=== PATIENT | female | born 1995 | race Two or more races ===

== ENCOUNTER 2017-02-27 08:46 | Emergency (ER) | payer OTHER ==
[2017-02-27 09:01] VITALS: TEMP 98.7; BMI 27.3
--- NOTE | 2017-02-27 09:27 | PDOC ---
History of Present Illness - History of Present Illness Initial Comments: 02/27/17 09:42 The patient is a 21 year old female, A1, with no significant past medical history, who presents to the emergency department with intermittent abdominal pain, nausea, and feeling of urgency upon urination since yesterday with two episodes of vomiting this morning. She localizes her pain to her [id number] abdominal region which radiates to her back. She states she ate some soup around midnight last night and woke up vomiting this morning. She also states that when she has finished urinating, she feels the need to keep going, but there is nothing left. She described this feeling as pressure. She states she was recently diagnosed with gastritis and reports taking omeprazol yesterday with very little relief of her symptoms. LMP: 02/02/17 5 year IUD was taken out 2 months ago. She reports her MPs are irregular. She denies chest pain, shortness of breath, headache and dizziness. She denies fever, chills, diarrhea and constipation. She denies dysuria, frequency, and hematuria. Allergies: NKDA Family History: Kidney stones (mother) Social history: denies toxic habits <Kalli Gonzalez - Last Filed: 02/27/17 09:42> <Darcie Zepeda - Last Filed: 02/27/17 11:23> - General Chief Complaint: Pain Stated Complaint: VOMITING Time Seen by Provider: 02/27/17 09:23 Past History <Kalli Gonzalez - Last Filed: 02/27/17 09:42> - Past Medical History Asthma: No Cancer: No Cardiac Disorders: No Diabetes: No GI Disorders: Yes (GERD) HTN: No Seizures: No Thyroid Disease: No - Psycho/Social/Smoking Cessation Hx Anxiety: No Suicidal Ideation: No Smoking Status: No Smoking History: Never smoked Number of Cigarettes Smoked Daily: 0 Information on smoking cessation initiated: No Hx Alcohol Use: No Drug/Substance Use Hx: No Substance Use Type: None Hx Substance Use Treatment: No <Darcie Zepeda - Last Filed: 02/27/17 11:23> - Past Medical History Allergies/Adverse Reactions: Allergies Allergy/AdvReac Type Severity Reaction Status Date / Time No Known Allergies Allergy Verified 02/27/17 09:02 Home Medications: Ambulatory Orders Acetaminophen [Tylenol .Regular Strength -] 650 mg PO Q4H PRN #0 tablet Omeprazole [Prilosec (RX)] 20 mg PO DAILY 11/02/12 Cephalexin Monohydrate [Keflex -] 500 mg PO BID #14 capsule 02/27/17 Review of Systems - Review of Systems Able to Perform ROS?: Yes Comments:: 02/27/17 09:42 GENERAL/CONSTITUTIONAL: No fever or chills. No weakness. HEAD, EYES, EARS, NOSE AND THROAT: No change in vision. No ear pain or discharge. No sore throat. CARDIOVASCULAR: No chest pain or shortness of breath. RESPIRATORY: No cough, wheezing, or hemoptysis. GASTROINTESTINAL: (+)nausea, vomiting, No diarrhea or constipation. GENITOURINARY: (+) pressure and urgency after urination. No dysuria, frequency MUSCULOSKELETAL: No joint or muscle swelling or pain. No neck or back pain. SKIN: No rash NEUROLOGIC: No headache, vertigo, loss of consciousness, or change in strength/ sensation. ENDOCRINE: No increased thirst. No abnormal weight change. HEMATOLOGIC/LYMPHATIC: No anemia, easy bleeding, or history of blood clots. ALLERGIC/IMMUNOLOGIC: No hives or skin allergy. <Kalli Gonzalez - Last Filed: 02/27/17 09:42> *Physical Exam - Vital Signs Last Vital Signs Temp Pulse Resp BP Pulse Ox 98.7 F 96 H 18 120/69 98 02/27/17 08:59 02/27/17 08:59 02/27/17 08:59 02/27/17 08:59 02/27/17 08:59 - Physical Exam Comments: 02/27/17 09:43 GENERAL: Awake, alert, and fully oriented, in no acute distress HEAD: No signs of trauma EYES: PERRLA, EOMI, sclera anicteric, conjunctiva clear ENT: (+)Dry mucosa; Auricles normal inspection, hearing grossly normal, nares patent, oropharynx clear without exudates. NECK: Normal ROM, supple, no lymphadenopathy, JVD, or masses LUNGS: Breath sounds equal, clear to auscultation bilaterally. No wheezes, and no crackles HEART: Regular rate and rhythm, normal S1 and S2, no murmurs, rubs or gallops ABDOMEN: Soft, nontender, normoactive bowel sounds. No guarding, no rebound. No masses EXTREMITIES: Normal range of motion, no edema. No clubbing or cyanosis. No cords, erythema, or tenderness NEUROLOGICAL: Cranial nerves II through XII grossly intact. Normal speech, normal gait SKIN: Warm, Dry, normal turgor, no rashes or lesions noted. <Kalli Gonzalez - Last Filed: 02/27/17 09:42> - Vital Signs Last Vital Signs Temp Pulse Resp BP Pulse Ox 98.7 F 96 H 18 120/69 98 02/27/17 08:59 02/27/17 08:59 02/27/17 08:59 02/27/17 08:59 02/27/17 08:59 <Darcie Zepeda - Last Filed: 02/27/17 11:23> ED Treatment Course - Medications Given in the ED: ED Medications Discontinued Medications Generic Name Dose Route Start Last Admin Trade Name Freq PRN Reason Stop Dose Admin Ondansetron HCl 4 mg 02/27/17 09:32 02/27/17 09:40 Zofran Injection IVPUSH 02/27/17 09:33 4 mg ONCE ONE Administration <Kalli Gonzalez - Last Filed: 02/27/17 09:42> - LABORATORY CBC & Chemistry Diagram: 02/27/17 09:48 02/27/17 09:45 <Darcie Zepeda - Last Filed: 02/27/17 11:23> Medical Decision Making - Medical Decision Making 02/27/17 10:49 Pt reassessed. Feeling much better s/p IVF. UA positive, culture sent. Treated with rocephin. Will DC home on keflex. Stable for DC. <Darcie Zepeda - Last Filed: 02/27/17 11:23> *DC/Admit/Observation/Transfer - Attestations Scribe Attestion: 02/27/17 09:44 Documentation prepared by Kalli Gonzalez, acting as medical imaging specialist for Darcie Zepeda MD, MD <Kalli Gonzalez - Last Filed: 02/27/17 09:42> - Discharge Dispostion Admit: No <Darcie Zepeda - Last Filed: 02/27/17 11:23> Diagnosis at time of Disposition: UTI (urinary tract infection) Qualifiers: Urinary tract infection type: acute cystitis Hematuria presence: without hematuria Qualified Code(s): N30.00 - Acute cystitis without hematuria - Discharge Dispostion Disposition: HOME Condition at time of disposition: Stable - Prescriptions Prescriptions: Cephalexin Monohydrate [Keflex -] 500 mg PO BID #14 capsule - Referrals Referrals: Junaid Carias [Primary Care Provider] - - Patient Instructions Printed Discharge Instructions: DI for Urinary Tract Infection (UTI)
[2017-02-27] MEDS ORDERED: SODIUM CHLORIDE 1,000 ML IV STA (09:32)
[2017-02-27] MEDS ORDERED: ONDANSETRON 4 MG/2 ML VIAL IVPUSH ONE (09:32)
[2017-02-27] MEDS ORDERED: ONDANSETRON 4 MG/2 ML VIAL ONE (09:33)
[2017-02-27 09:58] LABS: BASOPHIL 0.2 % (0-2.0); EOSINOPHIL 0.3 % (0-4.5); MCH 30.7 pg (25.7-33.7); MCHC 33.5 g/dl (32.0-36.0); MEAN CELL VOLUME 91.5 fl (80-96); MEAN PLT VOLUME 7.8 fl (7.5-11.1); NEUTROPHILS 81.6 % (42.8-82.8); PLATELET COUNT 245 K/MM3 (134-434); RDW 13.1 % (11.6-15.6); WHITE BLOOD COUNT 7.4 K/mm3 (4.0-10.0)
[2017-02-27 09:59] LABS: URINE APPEARANCE CLEAR; URINE BILIRUBIN NEGATIVE (NEGATIVE); URINE COLOR LTYELLOW; URINE GLUCOSE (UA) NEGATIVE (NEGATIVE); URINE KETONE NEGATIVE (NEGATIVE); URINE NITRITE NEGATIVE (NEGATIVE); URINE PROTEIN NEGATIVE (NEGATIVE); URINE UROBILINOGEN NEGATIVE E.U./dl (0.2-1.0)
[2017-02-27 10:02] LABS: URINE BLOOD 2+ (NEGATIVE); URINE LEUK ESTERASE 3+ (NEGATIVE)
[2017-02-27 10:07] LABS: URINE RBC 52 /hpf (0-3); URINE WBC 199 /hpf (3-5)
[2017-02-27 10:28] LABS: ANION GAP 9 (8-16); BILIRUBIN,TOTAL 0.6 mg/dL (0.2-1.0); CALCIUM 8.2 mg/dL (8.5-10.1); CO2 24 mmol/L (21-32); COCKROFT - GAULT 181.6875; CREATININE 0.5 mg/dL (0.55-1.02); GLUCOSE,RANDOM 80 mg/dL (74-106); SGOT/AST 20 U/L (15-37); SGPT/ALT 28 U/L (12-78)
[2017-02-27 10:29] LABS: ALK PHOS 95 U/L (45-117)
[2017-02-27] MEDS ORDERED: CEFTRIAXONE 1 GM in DEXTROSE 5%-WATER - 50 ML IVPB ONE (10:45)
[2017-02-27] MEDS ORDERED: CEFTRIAXONE 50 ML ONE (10:49)
[2017-02-27 11:31] VITALS: BP 118/68; PULSE 80
== END 2017-02-27 11:33 | disposition home or self-care (01) ==
LOC: JER 08:46
PROC: 3E03329 Introduction of Other Anti-infective into Peripheral Vein, Percutaneous Approach (ICD-10-PCS; principal; 2017-02-27)
PROC: 3E033GC Introduction of Other Therapeutic Substance into Peripheral Vein, Percutaneous Approach (ICD-10-PCS; 2017-02-27)
DX: N30.00 Acute cystitis without hematuria (principal)
CPT/HCPCS: 36415; 80053; 81003; 81015; 83690; 84703; 85025; 87086; 87186; 96365; 96375; 99283-25

== ENCOUNTER 2017-06-11 17:15 | Emergency (ER) | payer OTHER ==
[2017-06-11 17:20] VITALS: BP 116/69; PULSE 87; TEMP 97.7; BMI 28.3
--- NOTE | 2017-06-11 18:19 | PDOC ---
History of Present Illness - General History Source: Patient Exam Limitations: No Limitations - History of Present Illness Initial Comments: 06/11/17 17:54 Patient is a 22-year-old female, 3 para 1 with one . Currently 14 weeks , LMP March 05, 2017. Patient states that she has been having lower abdominal discomfort. Works as a cashier wrapper and stands for several hours without sitting feels that it may be attributed to that. Denies any vaginal discharge or bleeding. No back pain. Patient reports that she "sometimes has pain with urination" denies any frequency or hematuria. Requesting to have the baby evaluated. Past Medical History: Denies. Allergies: No known allergies Medications: Family History: Non-contributory Social History: Denies smoking, alcohol use, or IVDU Vital signs on arrival are notable for pulse of 96. Review of Systems GENERAL/CONSTITUTIONAL: No fever or chills. No weakness. No weight change. HEAD, EYES, EARS, NOSE AND THROAT: No change in vision. No ear pain or discharge. No sore throat. CARDIOVASCULAR: No chest pain or shortness of breath. RESPIRATORY: No cough, wheezing, or hemoptysis. GASTROINTESTINAL: No nausea, vomiting, diarrhea or constipation. No rectal bleeding. Lower abdominal discomfort GENITOURINARY: No dysuria, frequency, or change in urination. MUSCULOSKELETAL: No joint or muscle swelling or pain. No neck or back pain. SKIN : No rash or easy bruising. Physical Exam: GENERAL: The patient is awake, alert, and fully oriented, in no acute distress. EYES: Pupils equal, round and reactive to light, extraocular movements intact, sclera anicteric, conjunctiva clear. ENT: Ears normal, nares patent, oropharynx clear without exudates. Moist mucous membranes. No uvula deviation NECK: Normal range of motion, supple without lymphadenopathy, JVD, or masses. LUNGS: Breath sounds equal, clear to auscultation bilaterally. No wheezes, and no crackles. HEART: Regular rate and rhythm, normal S1 and S2 without murmur, rub or gallop. ABDOMEN: Soft, nontender, normoactive bowel sounds. No guarding, no rebound. No masses. No bruising or abrasions MUSCULOSKELETAL: Normal range of motion, no edema. No clubbing or cyanosis. No cords, erythema, or tenderness. No CVA Tenderness with fist. NEUROLOGICAL: Cranial nerves II through XII grossly intact. Normal speech, normal gait. SKIN: Warm, Dry, normal turgor, no rashes or lesions noted. 06/11/17 19:52 <Becca Chavez - Last Filed: 06/11/17 19:52> <Livier Olivo - Last Filed: 06/11/17 21:18> - General Chief Complaint: Pain Stated Complaint: STOMACH PAIN/12 WKS Time Seen by Provider: 06/11/17 17:51 Past History - Past Medical History Asthma: No Cancer: No Cardiac Disorders: No Diabetes: No GI Disorders: Yes (GERD) HTN: No Seizures: No Thyroid Disease: No - Psycho/Social/Smoking Cessation Hx Anxiety: No Suicidal Ideation: No Smoking Status: No Smoking History: Never smoked Number of Cigarettes Smoked Daily: 0 Information on smoking cessation initiated: No Hx Alcohol Use: No Drug/Substance Use Hx: No Substance Use Type: None Hx Substance Use Treatment: No <Becca Chavez - Last Filed: 06/11/17 19:52> <Livier Olivo - Last Filed: 06/11/17 21:18> - Past Medical History Allergies/Adverse Reactions: Allergies Allergy/AdvReac Type Severity Reaction Status Date / Time No Known Allergies Allergy Verified 06/11/17 17:20 Home Medications: Ambulatory Orders NK [No Known Home Medication] 06/11/17 *Physical Exam - Vital Signs Last Vital Signs Temp Pulse Resp BP Pulse Ox 97.7 F 87 18 116/69 100 06/11/17 17:16 06/11/17 17:16 06/11/17 17:16 06/11/17 17:16 06/11/17 17:16 <Becca Chavez - Last Filed: 06/11/17 19:52> - Vital Signs Last Vital Signs Temp Pulse Resp BP Pulse Ox 97.7 F 87 18 116/69 100 06/11/17 17:16 06/11/17 17:16 06/11/17 17:16 06/11/17 17:16 06/11/17 17:16 <Livier Olivo - Last Filed: 06/11/17 21:18> ED Treatment Course - LABORATORY CBC & Chemistry Diagram: 06/11/17 18:30 - RADIOLOGY Radiology Studies Ordered: Category Date Time Status TRANSVAGINAL US PREG [US] Stat Ultrasound 06/11/17 17:52 Ordered <GissellethaBecca - Last Filed: 06/11/17 19:52> - LABORATORY CBC & Chemistry Diagram: 06/11/17 18:30 - ADDITIONAL ORDERS Additional order review: Laboratory Results 06/11/17 06/11/17 06/11/17 20:00 18:30 18:30 INR 1.08 Beta HCG, Quant 21935.7 Urine Color Urine Appearance Urine pH Urine Protein Urine Glucose (UA) Urine Ketones Urine Blood Urine Nitrite Urine Bilirubin Urine Urobilinogen Ur Leukocyte Esterase Urine HCG, Qual Blood Type O POSITIVE Antibody Screen Negative 06/11/17 18:10 INR Beta HCG, Quant Urine Color Straw Urine Appearance Clear Urine pH 6.0 Urine Protein Negative Urine Glucose (UA) Negative Urine Ketones Negative Urine Blood Negative Urine Nitrite Negative Urine Bilirubin Negative Urine Urobilinogen Negative Ur Leukocyte Esterase Negative Urine HCG, Qual Positive Blood Type Antibody Screen 06/11/17 18:30 RBC 3.95 MCV 90.8 MCHC 33.7 RDW 13.2 MPV 7.7 Neutrophils % 68.0 Lymphocytes % 24.1 D Monocytes % 6.9 Eosinophils % 0.7 D Basophils % 0.3 <Livier Olivo - Last Filed: 06/11/17 21:18> Medical Decision Making - Medical Decision Making 06/11/17 18:19 A/P: Patient here for evaluation of lower abdominal discomfort, we will rule out a urinary tract infection and assess status of baby. Urinalysis, urine culture, type and screen, ultrasound 06/11/17 19:33 Laboratory Results - last 24 hr 06/11/17 06/11/17 18:10 18:30 WBC 10.4 H D RBC 3.95 Hgb 12.1 D Hct 35.8 D MCV 90.8 MCH 30.6 MCHC 33.7 RDW 13.2 Plt Count 305 D MPV 7.7 Neutrophils % 68.0 Lymphocytes % 24.1 D Monocytes % 6.9 Eosinophils % 0.7 D Basophils % 0.3 Urine Color Straw Urine Appearance Clear Urine pH 6.0 Urine Protein Negative Urine Glucose (UA) Negative Urine Ketones Negative Urine Blood Negative Urine Nitrite Negative Urine Bilirubin Negative Urine Urobilinogen Negative Ur Leukocyte Esterase Negative Urine HCG, Qual Positive Still awaiting beta hCG and ultrasound results. 06/11/17 19:33 I am signing this patient out to my colleague: Geovani SCHNEIDER In brief, this patient is being seen in the ED for a chief complaint of: Lower abdominal discomfort, 15 weeks I have completed the initial assessment interview note and have ordered: CBC, type and screen, urinalysis, urine culture, beta hCG I have reviewed the following results: CBC, urinalysis Pending results are: Beta hCG and ultrasound Plan for disposition is as follows: Pending Pt OB/ OCEANOGRAPHER GEOLOG[facility]. Dr. Morgan. 06/11/17 19:53 <Becca Chavez - Last Filed: 06/11/17 19:52> *DC/Admit/Observation/Transfer <Becca Chavez - Last Filed: 06/11/17 19:52> <Livier Olivo - Last Filed: 06/11/17 21:18> Diagnosis at time of Disposition: Qualifiers: Weeks of gestation: 15 weeks Qualified Code(s): Z3A.15 - 15 weeks gestation of - Discharge Dispostion Disposition: HOME Condition at time of disposition: Good - Referrals Referrals: Fabricio Morgan MD [Staff Physician] - - Patient Instructions Additional Instructions: FOLLOW WITH YOUR DIABETOLOGIST CALL TOMORROW TO MAKE APPOINTMENT RETURN TO ER FOR ANY WORSENING SYMPTOMS
[2017-06-11 18:21] LABS: URINE APPEARANCE CLEAR; URINE BILIRUBIN NEGATIVE (NEGATIVE); URINE BLOOD NEGATIVE (NEGATIVE); URINE COLOR STRAW; URINE GLUCOSE (UA) NEGATIVE (NEGATIVE); URINE KETONE NEGATIVE (NEGATIVE); URINE LEUK ESTERASE NEGATIVE (NEGATIVE); URINE NITRITE NEGATIVE (NEGATIVE); URINE PROTEIN NEGATIVE (NEGATIVE); URINE UROBILINOGEN NEGATIVE mg/dL (0.2-1.0)
[2017-06-11 19:02] LABS: BASOPHIL 0.3 % (0-2.0); EOSINOPHIL 0.7 % (0-4.5); MCH 30.6 pg (25.7-33.7); MCHC 33.7 g/dl (32.0-36.0); MEAN CELL VOLUME 90.8 fl (80-96); MEAN PLT VOLUME 7.7 fl (7.5-11.1); PLATELET COUNT 305 K/MM3 (134-434); RDW 13.2 % (11.6-15.6); WHITE BLOOD COUNT 10.4 K/mm3 (4.0-10.0)
[2017-06-11 19:23] LABS: INR 1.08 (0.82-1.09); PROTHROMBIN TIME (PATIENT) 11.9 SEC (9.98-11.88)
== END 2017-06-11 21:20 | disposition home or self-care (01) ==
LOC: JER 17:15 → JERFT 17:15
DX: O26.891 Other specified pregnancy related conditions, first trimester (principal); Z3A.15 15 weeks gestation of pregnancy; R10.30 Lower abdominal pain, unspecified; K21.9 Gastro-esophageal reflux disease without esophagitis
CPT/HCPCS: 36415; 76801-TC; 81003; 84702; 84703; 85025; 85610; 86850; 86900; 86901; 87086; 99281-25

== ENCOUNTER 2017-10-01 16:36 | Emergency (ER) | payer OTHER ==
[2017-10-01 16:47] VITALS: BMI 32.1
--- NOTE | 2017-10-01 16:49 | PDOC ---
Rapid Medical Evaluation Medical Evaluation: Allergies Allergy/AdvReac Type Severity Reaction Status Date / Time No Known Allergies Allergy Verified 09/13/17 12:03 10/01/17 16:44 I have performed a brief in person evaluation of this patient. The patient presents with chief complaint of : pt c/o loose stool and upper abd pain after eating plantain dish with pork. no fever. Pt is having lower abd pressure with urination is 30 weeks , no vaginal discharge or bleeding , pt is feeling the baby move well. Pertinent PE findings: appears uncomfortable , holding the top of her stomach. I have ordered the following: The patient will proceed to the ER for further evaluation. Will send pt to labor and delivery for evaluation and refer to ER as needed.
[2017-10-01 17:46] VITALS: BP 114/65; PULSE 108; TEMP 99
[2017-10-01] MEDS ORDERED: DEXTROSE 5%-LACTATED RINGERS 500 ML IV SCH (18:00)
[2017-10-01] MEDS ORDERED: MAG HYDROX/AL HYDROX/SIMETH 30 ML UNIT-DOSE CUP PO ONE (18:45)
[2017-10-01] MEDS ORDERED: DEXTROSE 5%-LACTATED RINGERS 1,000 ML IV SCH (19:00)
== END 2017-10-01 20:58 | disposition home or self-care (01) ==
LOC: JER 16:36
DX: O26.893 Other specified pregnancy related conditions, third trimester (principal); R10.13 Epigastric pain; Z3A.30 30 weeks gestation of pregnancy
CPT/HCPCS: 99281-25

== ENCOUNTER 2019-02-28 00:45 | Emergency (ER) | payer OTHER ==
[2019-02-28] MEDS ORDERED: ONDANSETRON *ODT* 4 MG TABLET SL ONE (01:27)
[2019-02-28] MEDS ORDERED: MAG HYDROX/AL HYDROX/SIMETH 30 ML UNIT-DOSE CUP PO ONE (01:27)
[2019-02-28] MEDS ORDERED: PANTOPRAZOLE 40 MG TABLET (FP) PO ONE (01:28)
--- NOTE | 2019-02-28 01:36 | PDOC ---
History of Present Illness - General Chief Complaint: Pain Stated Complaint: ABDOMINAL PAIN Time Seen by Provider: 02/28/19 01:11 History Source: Patient Exam Limitations: Clinical Condition - History of Present Illness Initial Comments: 02/28/19 01:32 Patient with history of gastritis present with complaint of diffuse abdominal pain which she describes as gas pain after eating fish this morning patient reports nausea but no vomiting. Patient reports she feels very gassy. Denies diarrhea, constipation, fever, chills. Denies any other symptoms Timing/Duration: other (12hrs) Past History - Past Medical History Allergies/Adverse Reactions: Allergies Allergy/AdvReac Type Severity Reaction Status Date / Time No Known Allergies Allergy Verified 02/28/19 01:08 Home Medications: Ambulatory Orders Famotidine [Pepcid] 20 mg PO DAILY #10 tablet 02/28/19 Mag Hydrox/Aluminum Hyd/Simeth [Maalox Advanced Suspension] 30 ml PO Q8H PRN # 200 ml 02/28/19 Ondansetron [Zofran Odt -] 4 mg SL TID PRN #21 od.tablet 02/28/19 Asthma: No Cancer: No Cardiac Disorders: No COPD: No DVT: No Diabetes: No GI Disorders: Yes (GERD) HTN: No Seizures: No Thyroid Disease: No - Suicide/Smoking/Psychosocial Hx Smoking Status: No Smoking History: Never smoked Number of Cigarettes Smoked Daily: 0 Hx Alcohol Use: No Drug/Substance Use Hx: No Substance Use Type: None Hx Substance Use Treatment: No Review of Systems - Review of Systems Able to Perform ROS?: Yes Is the patient limited Bengali proficient: No Constitutional: No: Fever, Malaise HEENTM: No: Symptoms Reported Respiratory: No: Symptoms reported Cardiac (ROS): No: Symptoms Reported ABD/GI: Yes: See HPI, Abdominal Distended, Nausea, Indigestion, Abdominal cramping (diffused). No: Abd. Pain w/ defecation, Blood Streaked Bowels, Constipated, Diarrhea, Difficulty Swallowing, Poor Appetite, Poor Fluid Intake, Rectal Bleeding, Vomiting, Tarry Stools : No: Burning, Discharge, Frequency, Urgency All Other Systems: Reviewed and Negative *Physical Exam - Vital Signs Last Vital Signs Temp Pulse Resp BP Pulse Ox 98.0 F 84 18 114/87 98 02/28/19 01:06 02/28/19 01:06 02/28/19 01:06 02/28/19 01:06 02/28/19 01:06 - Physical Exam Comments: 02/28/19 01:35 GENERAL: Well developed, well nourished. Awake and alert. No acute distress. NECK: Supple. Full ROM. CARDIOVASCULAR: Regular rate and rhythm. No murmurs, rubs, or gallops. PULMONARY: No evidence of respiratory distress. Lungs clear to auscultation bilaterally. No wheezing, rales or rhonchi. ABDOMINAL: Diffuse hyperactive bowel sounds. Soft. Non-tender. Non-distended. No rebound or guarding. No organomegaly. MUSCULOSKELETAL Normal range of motion at all joints. SKIN: Warm and dry. Normal capillary refill. No rashes. NEUROLOGICAL: Alert, awake, appropriate. Gait is normal without ataxia. PSYCHIATRIC: Cooperative. Good eye contact. Appropriate mood General Appearance: Yes: Nourished, Appropriately Dressed. No: Apparent Distress ED Treatment Course - LABORATORY CBC & Chemistry Diagram: 02/28/19 02:34 02/28/19 02:36 Medical Decision Making - Medical Decision Making 02/28/19 01:33 Patient with history of gastritis present with complaint of diffuse abdominal pain which she describes as gas pain after eating fish this morning patient reports nausea but no vomiting. Patient reports she feels very gassy. Denies diarrhea, constipation, fever, chills. Denies any other symptoms Exam significant for diffuse hyperactive bowel sounds. No abdominal tenderness on exam. No guarding or rebound. Symptoms likely gas pain. Maalox 30 mg mL. Protonix 40 mg by mouth and Zofran 4 mg sublingual ordered. Reassess after 30 minutes 02/28/19 02:26 Patient still complaining of lot of abdominal pain. UA, Ucx ordered. CBC,CMP labs ordered . Tylenol 1g IV ordered for pain. NS 1L ordered for hydration. treat based on lab results 02/28/19 03:20 CBC LABS normal. hcg neg 02/28/19 03:31 chemistry labs unremarkable. Patient symptoms likely from gas pain. Pt report improvement in pain with IVF and Tylenol . pt stable for discharge on maalox and pepcid with GI f/u as needed *DC/Admit/Observation/Transfer Diagnosis at time of Disposition: Bloating Abdominal pain Qualifiers: Abdominal location: unspecified location Qualified Code(s): R10.9 - Unspecified abdominal pain - Discharge Dispostion Disposition: HOME Condition at time of disposition: Stable Decision to Admit order: No - Prescriptions Prescriptions: Famotidine [Pepcid] 20 mg PO DAILY #10 tablet Mag Hydrox/Aluminum Hyd/Simeth [Maalox Advanced Suspension] 30 ml PO Q8H PRN # 200 ml PRN Reason: abdominal discomfort Ondansetron [Zofran Odt -] 4 mg SL TID PRN #21 od.tablet PRN Reason: vomiting - Referrals Referrals: Junaid Carias [Primary Care Provider] - - Patient Instructions Printed Discharge Instructions: Intestinal Gas (Alternative Therapy) Additional Instructions: Your labs was normal. Your symptoms is likely from gas. Take prescribed medication as prescribed. Increase fluid intake. Follow-up with referred GI if no complete improvement in symptoms in 2 days - Post Discharge Activity
--- NOTE | 2019-02-28 01:37 | PDOC ---
*Physical Exam - Vital Signs Last Vital Signs Temp Pulse Resp BP Pulse Ox 98.0 F 84 18 114/87 98 02/28/19 01:06 02/28/19 01:06 02/28/19 01:06 02/28/19 01:06 02/28/19 01:06 ED Treatment Course - LABORATORY CBC & Chemistry Diagram: 02/28/19 02:34 02/28/19 02:36 Medical Decision Making - Medical Decision Making 02/28/19 01:37 Case discussed with TYLOR Au Agree with assessment and plan *DC/Admit/Observation/Transfer Diagnosis at time of Disposition: Bloating Abdominal pain Qualifiers: Abdominal location: unspecified location Qualified Code(s): R10.9 - Unspecified abdominal pain - Discharge Dispostion Disposition: HOME Condition at time of disposition: Stable - Prescriptions Prescriptions: Famotidine [Pepcid] 20 mg PO DAILY #10 tablet Mag Hydrox/Aluminum Hyd/Simeth [Maalox Advanced Suspension] 30 ml PO Q8H PRN # 200 ml PRN Reason: abdominal discomfort Ondansetron [Zofran Odt -] 4 mg SL TID PRN #21 od.tablet PRN Reason: vomiting - Referrals Referrals: Junaid Carias [Primary Care Provider] - - Patient Instructions Printed Discharge Instructions: Intestinal Gas (Alternative Therapy) Additional Instructions: Your labs was normal. Your symptoms is likely from gas. Take prescribed medication as prescribed. Increase fluid intake. Follow-up with referred GI if no complete improvement in symptoms in 2 days - Post Discharge Activity
[2019-02-28] MEDS ORDERED: MAG HYDROX/AL HYDROX/SIMETH 30 ML UNIT-DOSE CUP ONE (01:38)
[2019-02-28] MEDS ORDERED: PANTOPRAZOLE 40 MG TABLET (FP) ONE (01:38)
[2019-02-28] MEDS ORDERED: ONDANSETRON *ODT* 4 MG TABLET ONE (01:38)
[2019-02-28 02:17] VITALS: BP 114/87; PULSE 84; TEMP 98; BMI 26.4
[2019-02-28] MEDS ORDERED: ACETAMINOPHEN 1000 MG/100 ML VIAL (NON FORMULARY) IVPB ONE (02:29)
[2019-02-28] MEDS ORDERED: SODIUM CHLORIDE 500 ML IV STA (02:29)
[2019-02-28] MEDS ORDERED: ACETAMINOPHEN INJECTION 100 ML IVPB ONE (02:38)
[2019-02-28 03:02] LABS: BASO % 0.3 % (0-2.0); EOS % 0.9 % (0-4.5); HEMATOCRIT 42.3 % (32.4-45.2); HEMOGLOBIN 14.5 GM/dL (10.7-15.3); LYMPH % 24.2 % (8-40); MCH 31.3 pg (25.7-33.7); MCHC 34.1 g/dl (32.0-36.0); MEAN CELL VOLUME 91.7 fl (80-96); MEAN PLT VOLUME 7.8 fl (7.5-11.1); NEUT % 67.6 % (42.8-82.8); PLATELET COUNT 319 K/MM3 (134-434); RBC 4.62 M/mm3 (3.60-5.2); RDW 13.2 % (11.6-15.6)
[2019-02-28 03:14] LABS: PH,URINE 8.5 (5.0-8.0); URINE APPEARANCE CLEAR; URINE BILIRUBIN NEGATIVE (NEGATIVE); URINE COLOR YELLOW; URINE GLUCOSE (UA) NEGATIVE (NEGATIVE); URINE KETONE NEGATIVE (NEGATIVE); URINE LEUK ESTERASE NEGATIVE (NEGATIVE); URINE NITRITE NEGATIVE (NEGATIVE); URINE PROTEIN NEGATIVE (NEGATIVE); URINE UROBILINOGEN 0.2 mg/dL (0.2-1.0)
[2019-02-28 03:26] LABS: ALBUMIN 3.8 g/dl (3.4-5.0); ALK PHOS 82 U/L (45-117); ANION GAP 8 MMOL/L (8-16); BILIRUBIN,TOTAL 0.4 mg/dL (0.2-1); BLOOD UREA NITROGEN 11 mg/dL (7-18); CALCIUM 8.9 mg/dL (8.5-10.1); CHLORIDE 106 mmol/L (98-107); CO2 26 mmol/L (21-32); CREATININE 0.5 mg/dL (0.55-1.3); GLUCOSE,RANDOM 83 mg/dL (74-106); POTASSIUM 4.2 mmol/L (3.5-5.1); SGOT/AST 18 U/L (15-37); SGPT/ALT 38 U/L (13-61); SODIUM 140 mmol/L (136-145); TOT PROT 7.9 g/dl (6.4-8.2)
== END 2019-02-28 03:50 | disposition home or self-care (01) ==
LOC: JER 00:45
PROC: 3E033NZ Introduction of Analgesics, Hypnotics, Sedatives into Peripheral Vein, Percutaneous Approach (ICD-10-PCS; principal; 2019-02-28)
PROC: 3E0337Z Introduction of Electrolytic and Water Balance Substance into Peripheral Vein, Percutaneous Approach (ICD-10-PCS; 2019-02-28)
DX: R14.0 Abdominal distension (gaseous) (principal); K21.9 Gastro-esophageal reflux disease without esophagitis
CPT/HCPCS: 36415; 80053; 81003; 84703; 85025; 87086; 96361; 96374; 99282-25; J0131; Q0162

== ENCOUNTER 2022-06-09 11:21 | Emergency (ER) | payer OTHER ==
[2022-06-09 11:38] VITALS: BP 124/81; PULSE 78; RESP 16; TEMP 97.9; BMI 27.9
[2022-06-09] MEDS ORDERED: SODIUM CHLORIDE 1,000 ML IV STA (12:13)
== END 2022-06-09 13:57 | disposition home or self-care (01) ==
LOC: JER 11:21
PROC: 3E0337Z Introduction of Electrolytic and Water Balance Substance into Peripheral Vein, Percutaneous Approach (ICD-10-PCS; principal; 2022-06-09)
DX: R42 Dizziness and giddiness (principal)
CPT/HCPCS: 70450-TC; 99284-25

== ENCOUNTER 2022-10-08 08:13 | Emergency (ER) | payer OTHER ==
[2022-10-08 08:30] VITALS: BP 121/70; PULSE 116; RESP 18; TEMP 98.9; BMI 28.3
== END 2022-10-08 09:59 | disposition home or self-care (01) ==
LOC: JER 08:13
DX: J09.X2 Influenza due to identified novel influenza A virus with other respiratory manifestations (principal); R05.1 Acute cough; M79.10 Myalgia, unspecified site
CPT/HCPCS: 0241U-QW; 99283-25

== ENCOUNTER 2023-04-29 18:46 | Emergency (ER) | payer OTHER ==
[2023-04-29 18:51] VITALS: BP 123/85; PULSE 86; RESP 18; TEMP 97.2; BMI 28.3
[2023-04-29] MEDS ORDERED: ONDANSETRON 4 MG/2 ML VIAL IVPUSH ONE (19:55)
[2023-04-29] MEDS ORDERED: MAG HYDROX/AL HYDROX/SIMETH 30 ML UNIT-DOSE CUP PO ONE (19:55)
[2023-04-29] MEDS ORDERED: SODIUM CHLORIDE 1,000 ML IV STA (19:55)
[2023-04-29] MEDS ORDERED: FAMOTIDINE 20 MG/50 ML IVPB 20 MG/50 ML MG IVPB ONE ×2 (19:55→20:19)
[2023-04-29] MEDS ORDERED: MAG HYDROX/AL HYDROX/SIMETH 30 ML UNIT-DOSE CUP ONE (20:19)
[2023-04-29] MEDS ORDERED: ONDANSETRON 4 MG/2 ML VIAL ONE (20:19)
[2023-04-29] MEDS ORDERED: ACETAMINOPHEN 1000 MG/100 ML BAG IVPB ONE (20:32)
[2023-04-29] MEDS ORDERED: ACETAMINOPHEN INJECTION 100 ML IVPB ONE (20:36)
[2023-04-29 20:41] LABS: BASO % 0.6 % (0-2.0); HEMATOCRIT 37.9 % (32.4-45.2); HEMOGLOBIN 12.7 GM/dL (10.7-15.3); LYMPH % 42.4 % (8-40); MCH 29.6 pg (25.7-33.7); MCHC 33.4 g/dl (32.0-36.0); MEAN CELL VOLUME 88.5 fl (80-96); MONO % 8.1 % (3.8-10.2); NEUT % 47.9 % (42.8-82.8); PLATELET COUNT 333 10^3/uL (134-434); RBC 4.29 M/mm3 (3.60-5.2); RDW 13.1 % (11.6-15.6); WHITE BLOOD COUNT 7.8 K/mm3 (4.0-10.0)
[2023-04-29 21:02] LABS: POTASSIUM 4.1 mmol/L (3.5-5.1)
[2023-04-29 21:04] LABS: BLOOD UREA NITROGEN 13.9 mg/dL (7-18); CALCIUM 8.7 mg/dL (8.5-10.1)
[2023-04-29 21:05] LABS: ALBUMIN 3.5 g/dl (3.4-5.0)
[2023-04-29 21:07] LABS: CREATININE 0.8 mg/dL (0.55-1.3)
[2023-04-29 21:09] LABS: BILIRUBIN,TOTAL 0.5 mg/dL (0.2-1)
== END 2023-04-29 22:23 | disposition home or self-care (01) ==
LOC: JER 18:46
PROC: 3E033GC Introduction of Other Therapeutic Substance into Peripheral Vein, Percutaneous Approach (ICD-10-PCS; principal; 2023-04-29)
PROC: 3E033NZ Introduction of Analgesics, Hypnotics, Sedatives into Peripheral Vein, Percutaneous Approach (ICD-10-PCS; 2023-04-29)
DX: R10.13 Epigastric pain (principal); K21.9 Gastro-esophageal reflux disease without esophagitis; K29.70 Gastritis, unspecified, without bleeding
CPT/HCPCS: 36415; 80053; 83690; 84703; 85025; 99284-25

== ENCOUNTER 2023-09-18 11:20 | Emergency (ER) | payer OTHER ==
[2023-09-18 11:27] VITALS: BP 123/76; PULSE 76; RESP 20; TEMP 98.7; BMI 24.2
[2023-09-18] MEDS ORDERED: MAG HYDROX/AL HYDROX/SIMETH 30 ML UNIT-DOSE CUP PO ONE (12:04)
[2023-09-18] MEDS ORDERED: FAMOTIDINE 20 MG TABLET PO ONE (12:04)
[2023-09-18] MEDS ORDERED: FAMOTIDINE 20 MG TABLET ONE (12:16)
[2023-09-18] MEDS ORDERED: MAG HYDROX/AL HYDROX/SIMETH 30 ML UNIT-DOSE CUP ONE (12:16)
[2023-09-18 12:27] LABS: BASO % 0.3 % (0-2.0); EOS % 0.7 % (0-4.5); HEMATOCRIT 40.6 % (32.4-45.2); HEMOGLOBIN 13.2 GM/dL (10.7-15.3); LYMPH % 38.7 % (8-40); MCH 29.5 pg (25.7-33.7); MCHC 32.4 g/dl (32.0-36.0); MEAN CELL VOLUME 91.1 fl (80-96); MEAN PLT VOLUME 7.2 fl (7.5-11.1); MONO % 7.7 % (3.8-10.2); NEUT % 52.6 % (42.8-82.8); PLATELET COUNT 321 10^3/uL (134-434); RBC 4.46 M/mm3 (3.60-5.2); RDW 13.3 % (11.6-15.6); WHITE BLOOD COUNT 6.9 K/mm3 (4.0-10.0)
[2023-09-18 12:36] LABS: POTASSIUM 4.6 mmol/L (3.5-5.1)
[2023-09-18 12:38] LABS: CALCIUM 8.7 mg/dL (8.5-10.1)
[2023-09-18 12:39] LABS: ALBUMIN 3.7 g/dl (3.4-5.0); BLOOD UREA NITROGEN 10.2 mg/dL (7-18)
[2023-09-18 12:42] LABS: CREATININE 0.6 mg/dL (0.55-1.3)
[2023-09-18 12:43] LABS: BILIRUBIN,TOTAL 0.5 mg/dL (0.2-1); TOT PROT 7.7 g/dl (6.4-8.2)
[2023-09-18] MEDS ORDERED: PANTOPRAZOLE SODIUM 40 MG VIAL IVPUSH ONE (13:57)
[2023-09-18] MEDS ORDERED: ACETAMINOPHEN 1000 MG/100 ML BAG IVPB ONE (13:57)
[2023-09-18] MEDS ORDERED: PANTOPRAZOLE SODIUM 40 MG VIAL ONE (14:05)
[2023-09-18] MEDS ORDERED: ACETAMINOPHEN INJECTION 100 ML IVPB ONE (14:06)
== END 2023-09-18 15:31 | disposition home or self-care (01) ==
LOC: JER 11:20
PROC: 3E033NZ Introduction of Analgesics, Hypnotics, Sedatives into Peripheral Vein, Percutaneous Approach (ICD-10-PCS; principal; 2023-09-18)
PROC: 3E033GC Introduction of Other Therapeutic Substance into Peripheral Vein, Percutaneous Approach (ICD-10-PCS; 2023-09-18)
DX: R10.13 Epigastric pain (principal); R11.0 Nausea; K29.00 Acute gastritis without bleeding
CPT/HCPCS: 36415; 80053; 83690; 84703; 85025; 99284-25

== ENCOUNTER 2024-01-07 16:04 | Emergency (ER) | payer OTHER ==
[2024-01-07 16:12] VITALS: BP 122/83; PULSE 84; TEMP 98; BMI 69.1
== END 2024-01-07 19:08 | disposition home or self-care (01) ==
LOC: JERFT 16:04 → JER 16:04 → JERFT 19:08
DX: S46.012A Strain of muscle(s) and tendon(s) of the rotator cuff of left shoulder, initial encounter (principal); M62.838 Other muscle spasm; M54.2 Cervicalgia; R20.2 Paresthesia of skin; X50.1XXA Overexertion from prolonged static or awkward postures, initial encounter
CPT/HCPCS: 99283-25